=== PATIENT | female | born 1950 | race African-American/Black ===

== ENCOUNTER 2017-05-03 06:04 | Emergency (ER) | payer BC, MEDICARE ==
[~2017-05-03] VITALS: Ht 160 cm; Wt 65.8 kg
--- NOTE | 2017-05-03 06:16 | Emergency Room Report ---
History of Present Illness General Chief Complaint: Altered Level of Consciousness Source: Patient, Family Member, Significant Other, EMS Present Illness HPI This is a 66-year-old female with a history of high blood pressure. She does not have a history of seizure. She presents with altered mental status and possibly seizure. Her found her on the floor in the bedroom. She has sonorous respiration. She also had blood from her mouth and incontinence of her urine. She was very confused. No witnessed seizure. No obvious head trauma. Patient denies any alcohol or drug use. Never had this problem before. Allergies: Coded Allergies: No Known Allergies (Unverified , 05/03/17) Patient History Past Medical History: see triage record, old chart reviewed, HTN Past Surgical History: other Pertinent Family History: none Social History: Denies: smoking Now: No Immunizations: other Reviewed Nursing Documentation: PMH: Agreed, PSxH: Agreed Nursing Documentation-PMH Hx Hypertension: Yes Review of Systems Eye: Denies: eye pain, blurred vision ENT: Denies: ear pain, nose congestion, throat swelling Respiratory: Denies: cough, shortness of breath Cardiovascular: Denies: chest pain, palpitations Gastrointestinal: Denies: abdominal pain, diarrhea, nausea, vomiting Musculoskeletal: Denies: back pain, joint pain Skin: Denies: rash Neurological: Denies: headache, numbness Endocrine: Denies: increased thirst, increased urine Hematologic/Lymphatic: Denies: easy bruising All Other Systems: negative except mentioned in HPI Physical Exam Vital Signs Date Time Temp Pulse Resp B/P (MAP) Pulse Ox O2 Delivery O2 Flow Rate FiO2 05/03/17 06:03 97.9 84 16 175/97 96 Room Air 97.9 vitals with high blood pressure Sp02 EP Interpretation: reviewed, normal General Appearance: well appearing, no apparent distress, alert Head: normocephalic, atraumatic Eyes: bilateral eye PERRL, bilateral eye EOMI ENT: hearing grossly normal, normal pharynx, other - Abrasion to left lateral tongue Neck: full range of motion, supple, no meningismus Respiratory: chest non-tender, lungs clear, normal breath sounds Cardiovascular #1: regular rate, rhythm, no murmur Gastrointestinal: normal bowel sounds, non tender, no mass, no organomegaly, no bruit, non-distended Musculoskeletal: back normal, gait/station normal, normal range of motion Psychiatric: mood/affect normal Skin: warm/dry Medical Decision Making Diagnostic Impression: Primary Impression: Altered level of consciousness Additional Impression: New onset seizure ER Course Patient with a probable new onset seizure. Labs, CT scan and EKG pending. Will sign out to Dr. Lawrence for final disposition. Will be to do a DMV report. Last Vital Signs Date Time Temp Pulse Resp B/P (MAP) Pulse Ox O2 Delivery O2 Flow Rate FiO2 05/03/17 06:03 97.9 84 16 175/97 96 Room Air 97.9 Scripts Unable to Obtain Active Prescriptions or Reported Meds BECCA THOMAS M.D. May 03, 2017 06:16
[2017-05-03 06:51] LABS: APPEARANCE,URINE CLEAR; BILIRUBIN, URINE NEGATIVE (NEGATIVE); COLOR,URINE PALE YELLOW; GLUCOSE, URINE (UA) 2+ (NEGATIVE); KETONES,URINE NEGATIVE (NEGATIVE); LEUKOCYTE ESTERASE ,URINE NEGATIVE (NEGATIVE); NITRITE,URINE NEGATIVE (NEGATIVE); PH,URINE 7 (4.5-8.0); PROTEIN,URINE 2+ (NEGATIVE); UROBILINOGEN,URINE NORMAL MG/DL (0.0-1.0)
[2017-05-03 06:57] LABS: BASOPHILS % (AUTO) 2.4 % (0.0-2.0); EOSINOPHILS % (AUTO) 0.3 % (0.0-3.0); HEMATOCRIT 43.2 % (37.0-47.0); HEMOGLOBIN 14.6 G/DL (12.0-16.0); LYMPHOCYTES % (AUTO) 23.6 % (20.0-45.0); MEAN CORPUSCULAR VOLUME 98 FL (80-99); MONOCYTES % (AUTO) 4.9 % (1.0-10.0); NEUTROPHILS % (AUTO) 68.9 % (45.0-75.0); PLATELET COUNT 228 K/UL (150-450); RED BLOOD COUNT 4.41 M/UL (4.20-5.40); RED CELL DISTRIBUTION WIDTH 11.8 % (11.6-14.8); WHITE BLOOD COUNT 4.7 K/UL (4.8-10.8)
[2017-05-03 07:11] VITALS: BP 147/85
[2017-05-03 07:11] LABS: ANION GAP 9 mmol/L (5-15); BLOOD UREA NITROGEN 13 mg/dL (7-18); CARBON DIOXIDE 27 MMOL/L (21-32); CHLORIDE 103 MMOL/L (98-107); CREATININE 1.1 MG/DL (0.55-1.30); POTASSIUM 3.7 MMOL/L (3.5-5.1); SODIUM 139 MMOL/L (136-145)
[2017-05-03 07:20] LABS: ALANINE AMINOTRANSFERASE 22 U/L (12-78); ALBUMIN 3.7 G/DL (3.4-5.0); ALBUMIN/GLOBULIN RATIO 0.8 (1.0-2.7); ALKALINE PHOSPHATASE 88 U/L (46-116); ASPARTATE AMINO TRANSFERASE 16 U/L (15-37); BILIRUBIN,TOTAL 0.4 MG/DL (0.2-1.0)
[2017-05-03] MEDS ORDERED: Tranexamic Acid 1,000 MG in NS 55 ML IVPB ONE (09:00)
--- NOTE | 2017-05-03 09:29 | Diagnostic Imaging Report ---
Indication: Seizure Technique: Contiguous 5 mm thick transaxial imaging of the head obtained in a Siemens Sensation [address] scanner. Soft tissue and bone windows generated. Automatic Exposure Control was utilized. Total Dose length Product (DLP): 1309.[address] Dose Index Volume (CTDIvol): 70.38 mGy Comparison: none Findings: Minimal, nonspecific, white matter hypoattenuation is noted throughout the brain consistent with chronic small vessel disease. There is no midline shift, edema, acute hemorrhage, mass effect, or abnormal extra-axial fluid collections. Bones and extra osseous soft tissues are unremarkable. Impression: No acute intracranial bleed, mass effect or edema. Nonspecific white matter hypoattenuation probably due to chronic small vessel disease. The CT scanner at [facility] is accredited by the [employer] and the scans are performed using dose optimization techniques as appropriate to a performed exam including Automatic Exposure control.
[2017-05-03 10:27] VITALS: BP 132/86
[2017-05-03 12:23] VITALS: BP 135/84
--- NOTE | 2017-05-03 18:29 | Cardiology Report ---
APPROVED REPORT EKG Measurement Heart [id number] Normal sinus rhythm Nonspecific T wave abnormality Abnormal ECG
== END 2017-05-03 12:25 | disposition home or self-care (01) ==
LOC: EDBD 06:04 → EMR 08:17
DX: R41.82 Altered mental status, unspecified (principal); G40.909 Epilepsy, unspecified, not intractable, without status epilepticus; I10 Essential (primary) hypertension
CPT/HCPCS: 36415; 70450; 80053; 80307; 81003; 85025; 93005; 99284; G0480; 80329

== ENCOUNTER 2018-12-26 05:14 | Emergency (ER) | payer BC, MEDICARE ==
[~2018-12-26] VITALS: Ht 172.7 cm; Wt 74.8 kg
[~2018-12-26 05:14] MED LIST: KEPPRA750 MG ORAL
[2018-12-26 05:20] VITALS: BP 163/96
--- NOTE | 2018-12-26 05:20 | NUR ---
ED Nurse Note: Patient brought in by Ra 66 from home c/o seizure, patiethilda states that the event lasted about 9 minutes where the patient was un arousable to shaking, patient did have tounge trauma however is not actively bleeding. at time of arrival patient is alert and oriented x3, glucose showed 144 on the sugar. patient placed on a monitor, satting at 100% on room air, IV started on patients left AC 20 gauge, implemented seizure precautions by padding side rails and bed at lowest position. will continue to monitor
--- NOTE | 2018-12-26 05:23 | Emergency Room Report ---
History of Present Illness General Chief Complaint: Seizure Source: Patient (Eron Lawrence MD) Present Illness HPI Patient is a 68-year-old female presented after witnessed seizure. Patient reportedly had a full body seizure lasting 9 minute. This resolved spontaneously. Patient had prior history of seizure disorder and currently takes Keppra. She was noted to be postictal and confused at the time of arrival. History is limited by patient's mental status. (Eron Lawrence MD) Allergies: Coded Allergies: No Known Allergies (Unverified , 05/03/17) Patient History Past Medical History: see triage record Reviewed Nursing Documentation: PMH: Agreed; PSxH: Agreed (Eron Lawrence MD) Nursing Documentation-PMH Past Medical History: No History, Except For Hx Hypertension: Yes Hx Seizures: Yes (Eron Lawrence MD) Review of Systems All Other Systems: negative except mentioned in HPI (Eron Lawrence MD) Physical Exam Vital Signs Date Time Temp Pulse Resp B/P (MAP) Pulse Ox O2 Delivery O2 Flow Rate FiO2 12/26/18 05:06 98.6 88 16 163/96 (118) 99 Room Air Sp02 EP Interpretation: reviewed, normal General Appearance: normal inspection, well appearing, no apparent distress, alert, GCS 15, non-toxic Head: atraumatic ENT: normal ENT inspection, hearing grossly normal, normal voice Neck: normal inspection, full range of motion, supple, no bony tend Respiratory: normal inspection, lungs clear, normal breath sounds, no respiratory distress, no retraction, no wheezing Cardiovascular #1: regular rate, rhythm, no edema Gastrointestinal: normal inspection, normal bowel sounds, non tender, soft, no guarding, no hernia Genitourinary: no CVA tenderness Musculoskeletal: normal inspection, back normal, normal range of motion Neurologic: normal inspection, alert, responsive, cattyman III-XII nml as tested, speech normal, other - confused likely postical Psychiatric: normal inspection, judgement/insight normal, mood/affect normal (Eron Lawrence MD) Vital Signs Date Time Temp Pulse Resp B/P (MAP) Pulse Ox O2 Delivery O2 Flow Rate FiO2 12/26/18 05:06 98.6 88 16 163/96 (118) 99 Room Air Sp02 EP Interpretation: reviewed, normal General Appearance: well appearing, no apparent distress, alert Head: normocephalic, atraumatic, other - tenderness to palpation frontal sinus Eyes: bilateral eye PERRL, bilateral eye EOMI ENT: uvula midline, moist mucus membranes Neck: supple, thyroid normal, supple/symm/no masses Respiratory: lungs clear, no respiratory distress, no retraction, no accessory muscle use Cardiovascular #1: normal peripheral pulses, regular rate, rhythm, no edema, no gallop, no murmur Gastrointestinal: non tender, soft, no guarding, no rebound Musculoskeletal: normal inspection Neurologic: alert, oriented x3 Psychiatric: mood/affect normal Skin: no rash, warm/dry (Chevy Valladares MD) Medical Decision Making Diagnostic Impression: Primary Impression: Epileptic seizure, generalized Additional Impressions: Seizure disorder Sinusitis Qualified Codes: J01.90 - Acute sinusitis, unspecified ER Course Patient presented for seizure. Differential diagnosis included medication noncompliance, cysticercosis, electrolyte abnormality, mass lesion, or cranial hemorrhage. Because of complexity of patient's case laboratory tests and imaging studies were ordered.Been seizure-free for approximately 1 year. Patient had normal white blood count. Laboratory studies were essentially unremarkable. Urinalysis currently pending. Patient was endorsed to Dr. Valladares pending further reevaluation and disposition. Labs Test 12/26/18 05:30 White Blood Count 5.2 K/UL (4.8-10.8) Red Blood Count 4.36 M/UL (4.20-5.40) Hemoglobin 13.9 G/DL (12.0-16.0) Hematocrit 41.6 % (37.0-47.0) Mean Corpuscular Volume 95 FL (80-99) Mean Corpuscular Hemoglobin 31.9 PG (27.0-31.0) Mean Corpuscular Hemoglobin Concent 33.5 G/DL (32.0-36.0) Red Cell Distribution Width 11.5 % (11.6-14.8) Platelet Count 228 K/UL (150-450) Mean Platelet Volume 5.5 FL (6.5-10.1) Neutrophils (%) (Auto) 53.8 % (45.0-75.0) Lymphocytes (%) (Auto) 32.6 % (20.0-45.0) Monocytes (%) (Auto) 9.2 % (1.0-10.0) Eosinophils (%) (Auto) 2.5 % (0.0-3.0) Basophils (%) (Auto) 2.0 % (0.0-2.0) Sodium Level 143 MMOL/L (136-145) Potassium Level 3.8 MMOL/L (3.5-5.1) Chloride Level 107 MMOL/L (98-107) Carbon Dioxide Level 24 MMOL/L (21-32) Anion Gap 12 mmol/L (5-15) Blood Urea Nitrogen 16 mg/dL (7-18) Creatinine 1.3 MG/DL (0.55-1.30) Estimat Glomerular Filtration Rate 49.1 mL/min (>60) Glucose Level 157 MG/DL (74-106) Calcium Level 10.2 MG/DL (8.5-10.1) Total Bilirubin 0.5 MG/DL (0.2-1.0) Aspartate Amino Transf (AST/SGOT) 12 U/L (15-37) Alanine Aminotransferase (ALT/SGPT) 21 U/L (12-78) Alkaline Phosphatase 74 U/L (46-116) Troponin I 0.000 ng/mL (0.000-0.056) Total Protein 7.9 G/DL (6.4-8.2) Albumin 3.6 G/DL (3.4-5.0) Globulin 4.3 g/dL Albumin/Globulin Ratio 0.8 (1.0-2.7) (Eron Lawrence MD) ER Course Reevaluation 7:10 AM, patient is back to baseline, patient reports that she did not take her Keppra she missed a dose, she feels back to normal once a refill for her Keppra, patient will be going home with her . Return precautions discussed follow-up with PCP continue taking her medications Patient also reports symptoms of sinusitis x 14 days, with nasal congestion, will start abx. Patient meets acute sinusitis indications for abx. (Chevy Valladares MD) EKG Diagnostic Results Rate: normal Rhythm: NSR ST Segments: no acute changes (Eron Lawrence MD) Rhythm Strip Diag. Results Rhythm Strip Time: 07:11 EP Interpretation: yes Rate: 74 Rhythm: NSR, no PVC's, no ectopy (Chevy Valladares MD) Last Vital Signs Date Time Temp Pulse Resp B/P (MAP) Pulse Ox O2 Delivery O2 Flow Rate FiO2 12/26/18 05:06 98.6 88 16 163/96 (118) 99 Room Air Status: improved (Eron Lawrence MD) Disposition: HOME, SELF-CARE Condition: Stable Scripts Amoxicillin/Potassium Clav 875-125* (AUGMENTIN 875-125 TABLET*) 1 Each Tablet 1 TAB ORAL TWICE A DAY, #14 TAB Prov: Chevy Valladares MD 12/26/18 Levetiracetam (KEPPRA) 1,000 Mg Tablet 1000 MG ORAL BID, #60 TAB 0 Refills Prov: Chevy Valladares MD 12/26/18 Referrals: [facility]. [facility] Patient Instructions: Seizure, Adult, Sinusitis, Adult, [id number] Additional Instructions: The patient was provided with discharge instructions, notified to follow-up with a primary care doctor and or specialist in the next 24-48 hours, and to return to the ED if they have worsening of their symptoms. Please note that this report is being documented using [employer] technology. This can lead to erroneous entry secondary to incorrect interpretation by the dictating instrument. Eron Lawrence MD Dec 26, 2018 05:23 Chevy Valladares MD Dec 26, 2018 07:13
[2018-12-26] MEDS ORDERED: levETIRAcetam 1,000mg/NS100ml 100 ML IVPB ONE (05:30)
[2018-12-26] MEDS ORDERED: KEPPRA1000 MG ORAL ×2 (05:39→07:13)
[2018-12-26] MEDS ORDERED: ATENOLOL25 MG ORAL (05:39)
[2018-12-26 06:09] LABS: EOSINOPHILS % (AUTO) 2.5 % (0.0-3.0); HEMATOCRIT 41.6 % (37.0-47.0); HEMOGLOBIN 13.9 G/DL (12.0-16.0); LYMPHOCYTES % (AUTO) 32.6 % (20.0-45.0); MEAN CORPUSCULAR VOLUME 95 FL (80-99); MONOCYTES % (AUTO) 9.2 % (1.0-10.0); NEUTROPHILS % (AUTO) 53.8 % (45.0-75.0); PLATELET COUNT 228 K/UL (150-450); RED BLOOD COUNT 4.36 M/UL (4.20-5.40); RED CELL DISTRIBUTION WIDTH 11.5 % (11.6-14.8); WHITE BLOOD COUNT 5.2 K/UL (4.8-10.8)
[2018-12-26 06:13] LABS: ANION GAP 12 mmol/L (5-15); BLOOD UREA NITROGEN 16 mg/dL (7-18); CALCIUM 10.2 MG/DL (8.5-10.1); CARBON DIOXIDE 24 MMOL/L (21-32); CHLORIDE 107 MMOL/L (98-107); CREATININE 1.3 MG/DL (0.55-1.30); POTASSIUM 3.8 MMOL/L (3.5-5.1); SODIUM 143 MMOL/L (136-145)
[2018-12-26 06:26] LABS: ALANINE AMINOTRANSFERASE 21 U/L (12-78); ALBUMIN 3.6 G/DL (3.4-5.0); ALBUMIN/GLOBULIN RATIO 0.8 (1.0-2.7); ALKALINE PHOSPHATASE 74 U/L (46-116); ASPARTATE AMINO TRANSFERASE 12 U/L (15-37); BILIRUBIN,TOTAL 0.5 MG/DL (0.2-1.0)
[2018-12-26] MEDS ORDERED: AUGMENTIN 875-1 EAC1 ORAL (07:13)
[2018-12-26 07:16] VITALS: BP 144/88
--- NOTE | 2018-12-26 07:16 | NUR ---
ER DISCHARGE NOTE: Patient is cleared to be discharged per ERMD, pt is aox4, on room air, with stable vital signs. pt was given dc and prescription instructions, pt was able to verbalize understanding, pt id band and iv site removed without complications. pt is able to ambulate with steady gait. pt took all belongings.
== END 2018-12-26 07:18 | disposition home or self-care (01) ==
LOC: EDBD 05:14 → EMR 05:42 → CANBEDREQ 07:12 → EMR 07:18
DX: G40.409 Other generalized epilepsy and epileptic syndromes, not intractable, without status epilepticus (principal); J01.90 Acute sinusitis, unspecified; I10 Essential (primary) hypertension
CPT/HCPCS: 36415; 80053; 84484; 85025; 93005; 96374; 99284; J1953